=== PATIENT | female | born 1960 | race Caucasian/White ===

== ENCOUNTER 2025-06-25 15:26 | Outpatient (AMB) | payer OTHER, SELFPAY ==
--- NOTE | 2025-06-25 15:36 | MHC.PC.OV ---
Vital Signs 06/25/25 15:45 Height 5 ft 9.49 in Weight 330 lb 8 oz BMI 48.1 BP 134/76 Blood Pressure Location Lt brachial Position Sitting Pulse 94 Pulse Source Pulse Oximeter Temp 97.1 F Temp Source Temporal Artery Scan Pulse Oximetry (%) 95 Oxygen Delivery Method Room Air Intake Visit Reasons: establish care Intake Note: Patient is a new patient here to establish care for Glaucoma 2, Asthma, Bilaterial Edema of lower extremity, HLD, Arthritis, Low back pain, Migraines, Obesity. Transferring care from [facility]. Medical records have been requested and have received. Sales Operations Analyst Required: No Waste Oil Pumper: Not Required per policy Accompanied by: Self / Same As Patient Allergies environmental allergies Allergy (Intermediate, Verified 06/25/25 16:06) Unknown latex Allergy (Intermediate, Verified 06/25/25 16:06) Hives Penicillins Allergy (Intermediate, Verified 06/25/25 16:06) Unknown pork derived (porcine) Allergy (Intermediate, Verified 06/25/25 16:06) Hives opioid-like analgesics Allergy (Intermediate, Uncoded 06/25/25 16:06) Unknown Medication List - Last Reconciled 06/25/25 by BOBBY Kolb albuterol sulfate 90 mcg/actuation 2 puffs inhalation BID fluticasone propion-salmeterol 100-50 mcg/dose 1 ea inhalation BID fluticasone propionate 50 mcg/actuation (Flonase Allergy Relief) 2 sprays intranasal DAILY loperamide (Anti-Diarrheal (loperamide)) 4 mg PO DAILY PRN tobramycin-dexamethasone 0.3-0.1 % 1 drp ophthalmic (eye) TID Tobacco use date assessed: 06/25/25 Fall risk assessment: No Falls in past year Last assessed Fall Risk: 06/25/25 Dental Screening Dental Screen Date: 06/25/25 Did you have a dental visit in the last 12 months?: No Did you have a dental problem in the last 6 months where you did not have access to dental care?: No Was dental information given to patient?: No HPI establish care HPI Details Previous PCP: [facility] Last visit: 2020 Last PE: pre-covid Specialist: before covid windows migration technician in [place] (asthma), ophthamalopgy ( Dr. Hill) OBGYN: Past medical history:caracts, glaucoma, both eyes, she had laser surgery on both eyes to bring the pressure down before surgery, due the risk of asthmatics with glaucoma medications. Insurance company has a online PT than she has been doing this for month. Medications: Family HX: Problem: The patient needs clearance for cataract surgery coming up in June The patient is a 65-year-old female presenting for management of multiple chronic conditions including asthma, glaucoma, cataracts, arthritis, and migraines. The patient has a history of asthma, which has been well-controlled with the help of an windows migration technician in [place] prior to -. She has not seen the windows migration technician since the pandemic but acknowledges the need to resume visits to maintain control over her respiratory health. The patient was diagnosed with glaucoma and cataracts, with the latter condition identified just before the pandemic. She underwent recent laser surgery to manage intraocular pressure and is scheduled for cataract surgery with stent placement in July to further address the glaucoma. Arthritis has been a persistent issue for the patient, affecting multiple joints and causing significant discomfort, particularly in the hands. She has been engaging in online physical therapy to manage symptoms and improve function. The patient reports a long-standing history of migraines, which have been present since her teenage years. She has not required medication for this condition and notes a decrease in frequency over time. The patient experiences diarrhea approximately once a week, which she attributes to stress related to her job. She has not sought specific treatment for this symptom. Plans for cataract surgery in July, left eye on the 8th and the right eye on the th [facility] Medical History (Updated 06/26/25 @ 08:24 by BOBBY Kolb) Cataract Varicella Morbid obesity Migraines HLD (hyperlipidemia) Bilateral edema of lower extremity Asthma Surgical History History of YAG laser capsulotomy of lens Hx of tonsillectomy History of repair of right rotator cuff History of repair of left rotator cuff Family History Father Diabetes Myocardial infarction Migraines Mother Depression Alcoholism Asthma Other Substance use disorder Social History Housing: Apartment Alcohol intake: never Patient Tobacco Use Status: Never used Tobacco e-Cigarette/Vaping Use: Never Used Second Hand Smoke Exposure: No service: No Current occupational status: employed Current occupation: [employer] rep Cognitive needs: No Hearing needs: No Vision needs: Yes (Glasses) Questionnaire PHQ-9 Over the last 2 weeks, how often have you been bothered by any of the following problems? 1. Little interest or pleasure in doing things: not at all 2. Feeling down, depressed, or hopeless: not at all 3. Trouble falling or staying asleep, or sleeping too much: several days 4. Feeling tired or having little energy: not at all 5. Poor appetite or overeating: not at all 6. Feeling bad about yourself - or that you are a failure or have let yourself or your family down: not at all 7. Trouble concentrating on things, such as reading the newspaper or watching television: not at all 8. Moving or speaking so slowly that other people could have noticed. Or the opposite - being so fidgety or restless that you have been moving around a lot more than usual: not at all 9. Thoughts that you would be better off or of hurting yourself in some way: not at all Total score: 1 Depression Screening Interpretation: Negative Depression Screening Done: Yes 57444 - PHQ-9 Billing: Yes Source: Developed by Drs. Luis Alberto Vazquez, Debra Meier, Gregor Siegel and colleagues, with an educational georges from [employer] Thrive Questionnaire Date Thrive assessed: 06/25/25 I am a: Patient What is your living situation today?: I have a steady place to live Within the past 12 months, did the food you bought not last and you didn't have the money to get more?: Never true Within the past 12 months, did you worry whether your food would run out before you got money to buy more?: Never true Do you have trouble paying for medicines?: No Do you have trouble getting transportation to medical appointments?: No Do you have trouble paying your heating and electricity bill?: No Do you have trouble taking care of your child, family member or friend?: No Do you have trouble with day-to-day activities such as bathing, preparing meals, shopping, managing finances, etc.?: No Are you currently unemployed and looking for a job?: No Are you interested in more education?: No Please select the resources that you would like help with: None Currently or been in a relationship where the following occur: No concerns reported THRIVE Score: 0 AUDIT C Alcohol Use Questionnaire (AUDIT-C) 1. How often do you have a drink containing alcohol?: Monthly or less 2. How many drinks containing alcohol do you have on a typical day when you are drinking?: 1 or 2 3. How often do you have six or more drinks on one occasion?: Never Total Score: 1 RAQUEL-7 AMB Questionnaire RAQUEL-7 Date RAQUEL - 7 assessed: 06/25/25 Feeling nervous, anxious, or on edge: 1 = Several days Not being able to stop or control worryin = Not at all Worrying too much about different things: 1 = Several days Trouble relaxin = Several days Being so restless that it is hard to sit still: 0 = Not at all Becoming easily annoyed or irritable: 1 = Several days Feeling afraid as if something awful might happen: 0 = Not at all Total RAQUEL-7 score (0-4 normal; 5-9 mild; 10-14 moderate; 15-21 severe): 4 Source: Developed by Drs. Luis Alberto Vazquez, Debra Meier, Gregor Siegel and colleagues, with an educational georges from [employer] RAQUEL-7 Assessment Billing RAQUEL-7 Assessment Tool: RAQUEL-7 Assessment 68073 Review of Systems Const Denies headache(s) Eyes Denies loss of vision ENT Denies vertigo, Denies dizziness, Denies headache(s) and Denies sore throat Card Denies chest pain, Reports leg edema, Denies lightheadedness and Reports dyspnea (chronic asthma-now increased in symptom) Resp Denies cough, Denies hemoptysis, Reports dyspnea (chronic asthma-now increased in symptom) and Denies wheezing GI Denies abdominal pain, Denies melena, Denies constipation, Reports diarrhea (Once a week attributed to stress) and Denies vomiting Denies urinary frequency, Denies dysuria and Denies urinary urgency Musc Reports arthralgias (Multiple (hands, shoulders, knees)), Reports joint swelling (ankle), Denies numbness and Denies tingling Skin/Breast Denies dry skin and Reports skin swelling Neuro Denies Abnormal speech present, Denies behavioral changes, Denies vertigo, Denies dizziness, Denies headache(s), Denies loss of vision, Denies memory loss, Denies numbness and Denies tingling Psych Denies anxiety, Denies behavioral changes, Denies depression, Denies memory loss and Denies panic attacks Junior/Lymph Denies easy bleeding and Denies easy bruising Aller/Immun Denies wheezing Physical exam (Primary Care) Vital Signs: Last Vital Signs Temp 97.1 F 06/25/25 15:45 Pulse 94 06/25/25 15:45 BP 134/76 06/25/25 15:45 Pulse Ox 95 06/25/25 15:45 Oxygen Delivery Method Room Air 06/25/25 15:45 BMI result Body Mass Index 48.1 Tobacco/Smoking Status: Tobacco use Status Tobacco use date assessed 06/25/25 06/25/25 15:51 Patient Tobacco Use Status Never used Tobacco 06/25/25 15:51 e-Cigarette/Vaping Use Never Used 06/25/25 15:51 PHQ-9: PHQ-9 Score PHQ-9: Total score 1 06/26/25 07:47 Depression Screening Interpretation: Negative Thrive Assessment: Date of Thrive Assessment Date Thrive assessed 06/25/25 06/25/25 15:51 Currently or been in a relationship where the following occur: No concerns reported Const General: healthy appearing, no acute distress, alert and awake Nutritional Appearance: well nourished Orientation/consciousness: oriented to person, oriented to place and oriented to time HENMT Ears: TM's normal bilaterally General nose exam: Normal nasal mucous membranes and turbinates present Eyes Conjunctivae: conjunctivae normal Sclerae: sclerae normal Pupils: Equal, round and reactive pupils present Neck Neck: Yes no lymphadenopathy and Yes no JVD Thyroid: Thyroid normal Carotids: no bruits Resp Effort & Inspection: normal respiratory effort and not tachypneic Auscultation: clear to auscultation bilaterally, no crackles, no rales, no rhonchi, no wheezes and diminished lung sounds bilateral in the lower lung nieves Cardio Rate: regular rate Rhythm: regular rhythm Heart sounds: no murmurs and normal S1 and S2 GI Inspection: Yes Abdominal wall edema Palpation (GI): Soft to palpation, nontender, no hepatomegaly and no splenomegaly Auscultation: normal bowel sounds General: Yes no CVA tenderness Back/Spine/Pelvis Back: no CVA tenderness Thoracic/Lumbar Spine: No thoracic spinal tenderness and No lumbar spinal tenderness Skin General skin exam: dry skin Neuro General: oriented to person, oriented to place and oriented to time Cranial nerves: Yes Equal, round and reactive pupils present Speech: No Abnormal speech present Gait exam (Neuro): Normal gait present Motor exam (neuro): no tremor noted Extrem Right upper extremity: full ROM and Extremity exam: right hand Details: normal to inspection Left upper extremity: full ROM and hand Details: normal to inspection Right lower extremity: full ROM, edema, lower leg Details: pitting edema Details: 3+ and ankle Details: edema Details: 3+ Left lower extremity: full ROM, edema, lower leg Details: pitting edema Details: 3+ and ankle Details: pitting edema Details: 3+ Psych Mental Status: mental status grossly normal Speech and movement: Normal speech and movement present Affect: normal affect Attitude: cooperative Thought process: Normal thought process present Coding Level of Care Code New Pt Level 4 (84989) Diagnoses Asthma, unspecified asthma severity, unspecified whether complicated, unspecified whether persistent J45.909 Asthma complication type: unspecified Asthma persistence: unspecified Asthma severity: unspecified severity Bilateral edema of lower extremity R60.0 Hyperlipidemia, unspecified hyperlipidemia type E78.5 Hyperlipidemia type: unspecified Migraine without status migrainosus, not intractable, unspecified migraine type G43.909 Intractability: not intractable Migraine type: unspecified Status migrainosus presence: without status migrainosus Morbid obesity E66.01 Cataract of both eyes, unspecified cataract type H26.9 Cataract type: unspecified Laterality: bilateral Glaucoma of both eyes, unspecified glaucoma type H40.9 Glaucoma type: unspecified Laterality: bilateral Diarrhea, unspecified type R19.7 Diarrhea type: unspecified type Additional Codes RAQUEL-7 Assessment Billing - RAQUEL-7 Assessment Tool: RAQUEL-7 Assessment 28826 ([id number]) PHQ-9 - 07398 - PHQ-9 Billing: Yes ([id number]) Time Spent (min) 43 Assessment & Plan Assessment & Plan (1) Asthma: Code(s): J45.909 - Unspecified asthma, uncomplicated Category: Medical Qualifiers: Asthma complication type: unspecified Asthma persistence: unspecified Asthma severity: unspecified severity Qualified Code(s): J45.909 - Unspecified asthma, uncomplicated (2) Bilateral edema of lower extremity: Code(s): R60.0 - Localized edema Category: Medical (3) HLD (hyperlipidemia): Code(s): E78.5 - Hyperlipidemia, unspecified Category: Medical Qualifiers: Hyperlipidemia type: unspecified Qualified Code(s): E78.5 - Hyperlipidemia, unspecified (4) Migraines: Code(s): G43.909 - Migraine, unspecified, not intractable, without status migrainosus Category: Medical Qualifiers: Intractability: not intractable Migraine type: unspecified Status migrainosus presence: without status migrainosus Qualified Code(s): G43.909 - Migraine, unspecified, not intractable, without status migrainosus (5) Morbid obesity: Code(s): E66.01 - Morbid (severe) obesity due to excess calories Category: Medical (6) Cataract: Code(s): H26.9 - Unspecified cataract Category: Medical Qualifiers: Cataract type: unspecified Laterality: bilateral Qualified Code(s): H26.9 - Unspecified cataract (7) Glaucoma: Code(s): H40.9 - Unspecified glaucoma Category: Medical Qualifiers: Glaucoma type: unspecified Laterality: bilateral Qualified Code(s): H40.9 - Unspecified glaucoma (8) Diarrhea: Code(s): R19.7 - Diarrhea, unspecified Category: Medical Qualifiers: Diarrhea type: unspecified type Qualified Code(s): R19.7 - Diarrhea, unspecified Plan The patient will continue with her current asthma management plan. She is scheduled for cataract surgery in July, which will include stent placement to address her glaucoma. The patient is advised to continue her online physical therapy regimen to manage arthritis symptoms and improve joint function. No specific treatment is planned for her migraines as they have decreased in frequency and do not currently require medication. For her gastrointestinal symptoms, the patient is encouraged to manage stress levels, which may help reduce the frequency of diarrhea episodes. Patient was informed and verbally consented to the use of an ambient scribe for clinic note documentation during this visit. Orders: Orders Complete Blood Count Auto Diff 06/25/25 Z00.00 - Encounter for general adult medical examination without abnormal findings, Z01.818 - Encounter for other preprocedural examination Comprehensive [place]. Panel Fast 06/25/25 Z00.00 - Encounter for general adult medical examination without abnormal findings, Z01.818 - Encounter for other preprocedural examination Lipid Panel 06/25/25 Z.00 - Encounter for general adult medical examination without abnormal findings, Z01.818 - Encounter for other preprocedural examination Vitamin D 25-OH Total 06/25/25 Z00.00 - Encounter for general adult medical examination without abnormal findings, Z01.818 - Encounter for other preprocedural examination Prothrombin Time INR 06/25/25 Z00.00 - Encounter for general adult medical examination without abnormal findings, Z01.818 - Encounter for other preprocedural examination B Type Natriuretic Peptide 06/26/25 R60.0 - Localized edema UA CC w/rflx Micro + Cult 06/25/25 Z00.00 - Encounter for general adult medical examination without abnormal findings, Z01.818 - Encounter for other preprocedural examination TSH reflex Free T4 06/25/25 Z00.00 - Encounter for general adult medical examination without abnormal findings, Z01.818 - Encounter for other preprocedural examination ECG 12 lead EKG 06/25/25 Z00.00 - Encounter for general adult medical examination without abnormal findings, Z01.818 - Encounter for other preprocedural examination
[2025-06-25 15:45] VITALS: BP 134/76; PULSE 94; TEMP 36.2; O2SAT 95; BMI 48.1
== END 2025-06-25 16:32 | disposition home or self-care (01) ==
LOC: HO.HMCH 15:30
DX: J45.909 Unspecified asthma, uncomplicated (principal); R60.0 Localized edema; E66.01 Morbid (severe) obesity due to excess calories; Z68.42 Body mass index [BMI] 45.0-49.9, adult; E78.5 Hyperlipidemia, unspecified; G43.909 Migraine, unspecified, not intractable, without status migrainosus; H26.9 Unspecified cataract; H40.9 Unspecified glaucoma; R19.7 Diarrhea, unspecified

== ENCOUNTER → 2025-06-25 15:26 | Outpatient (BNVA) | payer OTHER, SELFPAY | DX: R60.0 Localized edema (principal); H40.9 Unspecified glaucoma; J45.909 Unspecified asthma, uncomplicated; E78.5 Hyperlipidemia, unspecified; M54.50 Low back pain, unspecified; G43.909 Migraine, unspecified, not intractable, without status migrainosus; E66.01 Morbid (severe) obesity due to excess calories; H26.9 Unspecified cataract; R19.7 Diarrhea, unspecified; Z68.42 Body mass index [BMI] 45.0-49.9, adult | CPT/HCPCS: 96127 ==

== ENCOUNTER 2025-07-19 09:27 | Outpatient (REF) | payer OTHER, SELFPAY ==
[2025-07-19 13:11] LABS: MANUAL DIFF FLAG NO
[2025-07-19 13:17] LABS: B Type Natriuretic Peptide 22 pg/mL (<100)
[2025-07-19 13:19] LABS: INTERNATIONAL NORM RATIO 1.0 (0.9-1.1); Prothrombin Time 10.9 SEC (10.9-12.4)
[2025-07-19 13:20] LABS: Hematocrit 43.7 % (37.0-47.0); Hemoglobin 14.8 g/dl (12.0-16.0); Imm Gran Abs Auto 0.03 X10*3/uL (0.00-0.03); Imm Gran Pct Auto 0.5 % (0.0-0.4); Lymphocytes Absolute Auto 1.6 X10*3/uL (1.2-4.9); Mean Corpuscular HGB Conc 33.9 g/dl (31.0-35.0); Mean Corpuscular Hemoglobin 30.3 pg (27.0-33.0); Mean Corpuscular Volume 89.5 fL (80.0-98.0); NRBC Abs Auto 0.000 X10*3/uL (0.0-0.012); NRBC Pct Auto 0.0 /100WBC (0.0-0.2); Platelet Count 265 X10*3/uL (160-400); Red Blood Count 4.88 X10*6/uL (4.20-5.50); White Blood Count 6.6 X10*3/uL (4.8-10.8)
[2025-07-19 13:50] LABS: Alanine Aminotransferase 34 U/L (0-31); Albumin Level 4.4 g/dL (3.5-5.0); Alkaline Phosphatase 114 U/L (39-117); Anion Gap 14 (12-20); Aspartate Amino Transferase 29 U/L (5-31); Blood Urea Nitrogen 13 mg/dL (9-16); Calcium 9.3 mg/dL (8.4-10.2); Carbon Dioxide 23 mmol/L (22-29); Chloride 110 mmol/L (96-108); Cholesterol 207 mg/dL (<200); Estimated Glomerular Filt Rate > 60; HDL Cholesterol 35 mg/dL (>40); Potassium 4.7 mmol/L (3.3-5.1); Sodium 142 mmol/L (135-145); Total Protein 7.0 g/dL (6.5-8.0); Triglycerides 189 mg/dL (<150)
[2025-07-19 16:53] LABS: Appearance Urine Turbid; Glucose Urine UA Negative (Negative); PH 5.5 (5.0-9.0); Specific Gravity - Urine 1.025 (1.005-1.025); UMIC TRIGGER UACC YES
[2025-07-19 16:59] LABS: UACC Culture Trigger YES
== END 2025-07-19 09:28 | disposition home or self-care (01) ==
LOC: HO.HMGCLDS 09:27
DX: Z00.00 Encounter for general adult medical examination without abnormal findings (principal); R60.0 Localized edema; Z13.6 Encounter for screening for cardiovascular disorders; Z13.21 Encounter for screening for nutritional disorder
CPT/HCPCS: 36415; 80053; 80061; 81001; 82306; 83880; 84443; 85025; 85610; 87086

== ENCOUNTER 2025-08-01 13:53 | Outpatient (AMB) | payer OTHER, SELFPAY ==
[2025-08-01 14:14] VITALS: BP 160/98; PULSE 81; RESP 18; TEMP 36.3; O2SAT 94; BMI 48.6
--- NOTE | 2025-08-01 14:14 | MHC.PC.OV ---
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 Accompanied by: Self / Same As Patient Allergies environmental allergies Allergy (Intermediate, Verified 08/01/25 14:50) Unknown latex Allergy (Intermediate, Verified 08/01/25 14:50) Hives Penicillins Allergy (Intermediate, Verified 08/01/25 14:50) Unknown pork derived (porcine) Allergy (Intermediate, Verified 08/01/25 14:50) Hives opioid-like analgesics Allergy (Intermediate, Uncoded 08/01/25 14:50) Unknown Medication List - Last Reconciled 08/01/25 by BOBBY Kolb albuterol sulfate 90 mcg/actuation 2 puffs inhalation BID fluticasone propion-salmeterol 100-50 mcg/dose 1 ea inhalation BID fluticasone propionate 50 mcg/actuation (Flonase Allergy Relief) 2 sprays intranasal DAILY loperamide (Anti-Diarrheal (loperamide)) 4 mg PO DAILY PRN Tobacco use date assessed: 08/01/25 Fall risk assessment: No Falls in past year Last assessed Fall Risk: 08/01/25 Dental Screening Dental Screen Date: 08/01/25 Did you have a dental visit in the last 12 months?: No Did you have a dental problem in the last 6 months where you did not have access to dental care?: No Was dental information given to patient?: No HPI Dr Hill 08/06 & 08/13 HPI Details The patient is a 65-year-old female presenting for preop clearance for cataract surgery. Patient is fairly knew to the facility, establish care on 06/25/2025. The patient was diagnosed with glaucoma and cataracts, with the latter condition identified just before the COVID-19 pandemic. She underwent recent laser surgery to manage intraocular pressure and is scheduled for cataract surgery with stent placement in July to further address the glaucoma. Surgeon/location: Dr. [facility] [place], [place] Date: 08/07/2025 Left eye and 08/13/2025 right eye. Anesthesia: Local The patient has previously undergone shoulder surgeries with general anesthesia and tolerated it well, although opioids post-surgery caused significant nausea. For the upcoming cataract surgery, the patient will not require opioids, which is reassuring to her. Patient denies postoperative hypothermia or clotting disorder and she is not on any blood thinners or DMARDs. Significant past medical history cataract, glaucoma, migraines, asthma, HLD Denies chest pain, shortness of breath, heart palpitation or dizziness Denies abdominal pain or change in bowel habits [facility] Medical History Cataract Varicella Morbid obesity Migraines HLD (hyperlipidemia) Bilateral edema of lower extremity Asthma Surgical History History of YAG laser capsulotomy of lens Hx of tonsillectomy History of repair of right rotator cuff History of repair of left rotator cuff Family History Father Diabetes Myocardial infarction Migraines Mother Depression Alcoholism Asthma Other Substance use disorder Social History Housing: Apartment Alcohol intake: never Patient Tobacco Use Status: Never used Tobacco e-Cigarette/Vaping Use: Never Used Second Hand Smoke Exposure: No service: No Current occupational status: employed 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 1. Little interest or pleasure in doing things: not at all 2. Feeling down, depressed, or hopeless: not at all 3. Trouble falling or staying asleep, or sleeping too much: several days 4. Feeling tired or having little energy: not at all 5. Poor appetite or overeating: not at all 6. Feeling bad about yourself - or that you are a failure or have let yourself or your family down: not at all 7. Trouble concentrating on things, such as reading the newspaper or watching television: not at all 8. Moving or speaking so slowly that other people could have noticed. Or the opposite - being so fidgety or restless that you have been moving around a lot more than usual: not at all 9. Thoughts that you would be better off or of hurting yourself in some way: not at all Total score: 1 Depression Screening Interpretation: Negative Depression Screening Done: Yes Source: Developed by Drs. Luis Alberto Vazquez, Debra Meier, Gregor Siegel and colleagues, with an educational georges from [employer] Thrive Questionnaire Date Thrive assessed: 08/01/25 I am a: Patient What is your living situation today?: I have a steady place to live Within the past 12 months, did the food you bought not last and you didn't have the money to get more?: Never true Within the past 12 months, did you worry whether your food would run out before you got money to buy more?: Never true Do you have trouble paying for medicines?: No Do you have trouble getting transportation to medical appointments?: No Do you have trouble paying your heating and electricity bill?: No Do you have trouble taking care of your child, family member or friend?: No Do you have trouble with day-to-day activities such as bathing, preparing meals, shopping, managing finances, etc.?: No Are you currently unemployed and looking for a job?: No Are you interested in more education?: No Please select the resources that you would like help with: None Currently or been in a relationship where the following occur: No concerns reported THRIVE Score: 0 AUDIT C Alcohol Use Questionnaire (AUDIT-C) 1. How often do you have a drink containing alcohol?: Monthly or less 2. How many drinks containing alcohol do you have on a typical day when you are drinking?: 1 or 2 3. How often do you have six or more drinks on one occasion?: Never Total Score: 1 RAQUEL-7 AMB Questionnaire RAQUEL-7 Date RAQUEL - 7 assessed: 08/01/25 Feeling nervous, anxious, or on edge: 1 = Several days Not being able to stop or control worryin = Not at all Worrying too much about different things: 1 = Several days Trouble relaxin = Several days Being so restless that it is hard to sit still: 0 = Not at all Becoming easily annoyed or irritable: 1 = Several days Feeling afraid as if something awful might happen: 0 = Not at all Total RAQUEL-7 score (0-4 normal; 5-9 mild; 10-14 moderate; 15-21 severe): 4 Source: Developed by Drs. Luis Alberto Vazquez, Debra Meier, Gregor Siegel and colleagues, with an educational georges from [employer] Review of Systems Const Reports headache(s) (on and off) Eyes Denies loss of vision ENT Denies vertigo, Denies dizziness, Reports headache(s) (on and off) and Denies sore throat Card Denies chest pain, Reports leg edema, Denies lightheadedness and Reports dyspnea on exertion (chronic asthma-improved with treatment) Resp Denies cough, Denies hemoptysis, Reports dyspnea on exertion (chronic asthma-improved with treatment) and Denies wheezing GI Denies abdominal pain, Denies melena, Denies constipation, Reports diarrhea (Once a week- stress related) and Denies vomiting Denies urinary frequency, Denies dysuria and Denies urinary urgency Musc Denies arthralgias, Denies joint swelling, Denies numbness and Denies tingling Neuro Denies Abnormal speech present, Denies behavioral changes, Denies vertigo, Denies dizziness, Reports headache(s) (on and off), Denies loss of vision, Denies memory loss, Denies numbness and Denies tingling Psych Denies anxiety, Denies behavioral changes, Denies depression, Denies memory loss and Denies panic attacks Junior/Lymph Denies easy bleeding and Denies easy bruising Aller/Immun Denies wheezing Physical exam (Primary Care) Vital Signs: Last Vital Signs Temp 97.3 F 08/01/25 14:14 Pulse 81 08/01/25 14:14 Resp 18 08/01/25 14:14 BP 160/98 H 08/01/25 14:14 Pulse Ox 94 08/01/25 14:14 Oxygen Delivery Method Room Air 08/01/25 14:14 BMI result Body Mass Index 48.6 Tobacco/Smoking Status: Tobacco use Status Tobacco use date assessed 08/01/25 08/01/25 14:17 Patient Tobacco Use Status Never used Tobacco 08/01/25 14:17 e-Cigarette/Vaping Use Never Used 08/01/25 14:17 PHQ-9: PHQ-9 Score PHQ-9: Total score 1 08/01/25 14:17 Depression Screening Interpretation: Negative Thrive Assessment: Date of Thrive Assessment Date Thrive assessed 08/01/25 08/01/25 14:17 Currently or been in a relationship where the following occur: No concerns reported Const General: healthy appearing, no acute distress, alert and awake Nutritional Appearance: well nourished Orientation/consciousness: oriented to person, oriented to place and oriented to time HENMT Ears: TM's normal bilaterally General nose exam: Normal nasal mucous membranes and turbinates present Eyes Conjunctivae: conjunctivae normal Sclerae: sclerae normal Pupils: Equal, round and reactive pupils present Neck Neck: Yes no lymphadenopathy and Yes no JVD Thyroid: Thyroid normal Carotids: no bruits Resp Effort & Inspection: normal respiratory effort and not tachypneic Auscultation: no crackles, no rales, no rhonchi and no wheezes Cardio Rate: regular rate Rhythm: regular rhythm Heart sounds: no murmurs and normal S1 and S2 GI Palpation (GI): Soft to palpation, nontender, no hepatomegaly and no splenomegaly Auscultation: normal bowel sounds General: Yes no CVA tenderness Back/Spine/Pelvis Back: no CVA tenderness Skin General skin exam: no rashes or lesions noted and dry skin Neuro General: oriented to person, oriented to place and oriented to time Cranial nerves: Yes Equal, round and reactive pupils present Speech: No Abnormal speech present Gait exam (Neuro): Normal gait present Motor exam (neuro): no tremor noted Extrem Right upper extremity: full ROM Left upper extremity: full ROM Right lower extremity: full ROM and edema Details: 3+ Left lower extremity: full ROM and edema Details: 3+ Psych Mental Status: mental status grossly normal Speech and movement: Normal speech and movement present Affect: normal affect Attitude: cooperative Thought process: Normal thought process present Results Reviewed Results Reviewed: Laboratory Tests 07/19/25 07/19/25 09:45 13:40 WBC 6.6 RBC 4.88 Hgb 14.8 Hct 43.7 MCV 89.5 MCH 30.3 MCHC 33.9 RDW 13.2 Plt Count 265 PT 10.9 INR 1.0 Sodium 142 Potassium 4.7 Chloride 110 H Carbon Dioxide 23 Anion Gap 14 BUN 13 Creatinine 0.90 Estimated GFR > 60 Fasting Glucose 97 Calcium 9.3 Total Bilirubin 0.5 AST 29 ALT 34 H Alkaline Phosphatase 114 B-Natriuretic Peptide 22 Total Protein 7.0 Albumin 4.4 Triglycerides 189 H Cholesterol 207 H LDL Cholesterol, Calc 135 H HDL Cholesterol 35 L 25-OH Vitamin D Total 43.7 TSH 1.08 Urine Color Yellow Urine Appearance Turbid Urine pH 5.5 Ur Specific [place] 1.025 Urine Protein Negative Urine Glucose (UA) Negative Urine Ketones Negative Urine Blood Negative Urine Nitrite Negative Ur Leukocyte Esterase Small (1+) H Urine RBC 0-2 Urine WBC 11-20 H Ur Squamous Epith Cells 11-20 Urine Bacteria 1+ Hyaline Casts 3-5 Coding Level of Care Code Est Pt Level 3 (55280) Diagnoses Preoperative clearance Z01.818 Cataract of both eyes, unspecified cataract type H26.9 Cataract type: unspecified Laterality: bilateral Glaucoma of both eyes, unspecified glaucoma type H40.9 Glaucoma type: unspecified Laterality: bilateral Migraine without status migrainosus, not intractable, unspecified migraine type G43.909 Migraine type: unspecified Status migrainosus presence: without status migrainosus Intractability: not intractable Asthma, unspecified asthma severity, unspecified whether complicated, unspecified whether persistent J45.909 Asthma severity: unspecified severity Asthma persistence: unspecified Asthma complication type: unspecified Dyspnea on exertion R06.09 Dyspnea type: dyspnea on exertion Time Spent (min) 36 Assessment & Plan Assessment & Plan (1) Preoperative clearance: Code(s): Z01.818 - Encounter for other preprocedural examination Category: Medical Plan: Regarding preop clearance, the patient is at acceptable risk for proposed surgery. Reviewed with the patient that no surgery is completely free of risk and that this examination is to assist the surgeon in reviewing informed consent. (2) Cataract: Code(s): H26.9 - Unspecified cataract Category: Medical Qualifiers: Cataract type: unspecified Laterality: bilateral Qualified Code(s): H26.9 - Unspecified cataract Plan: The patient is scheduled for cataract surgery on August 06, starting with the left eye followed by the right eye. The surgery will also address glaucoma, which was diagnosed during the cataract evaluation. (3) Glaucoma: Code(s): H40.9 - Unspecified glaucoma Category: Medical Qualifiers: Glaucoma type: unspecified Laterality: bilateral Qualified Code(s): H40.9 - Unspecified glaucoma Plan: The patient underwent laser treatment in May for glaucoma, which successfully reduced intraocular pressure. (4) Migraines: Code(s): G43.909 - Migraine, unspecified, not intractable, without status migrainosus Category: Medical Qualifiers: Migraine type: unspecified Status migrainosus presence: without status migrainosus Intractability: not intractable Qualified Code(s): G43.909 - Migraine, unspecified, not intractable, without status migrainosus Plan: The patient has a history of migraines but reports not having had an attack for years. (5) Asthma: Code(s): J45.909 - Unspecified asthma, uncomplicated Category: Medical Qualifiers: Asthma severity: unspecified severity Asthma persistence: unspecified Asthma complication type: unspecified Qualified Code(s): J45.909 - Unspecified asthma, uncomplicated Plan: The patient reports having asthma, which is not severe. This is stable on current treatment. Continue albuterol sulfate 90 mcg/actuation 2 puffs inhalation b.i.d., fluticasone propion-salmeterol 100-50 mcg/dose 1 ea inhalation b.i.d. (6) Dyspnea: Code(s): R06.00 - Dyspnea, unspecified Category: Medical Qualifiers: Dyspnea type: dyspnea on exertion Qualified Code(s): R06.09 - Other forms of dyspnea Plan: Reports dyspnea on prior visit. CBC within normal limits, B-natriuretic peptide 22. Patient lungs are clear to auscultation. Pitting edema seems to be dependent in nature. Symptoms most likely related to chronic asthma along with deconditioning.
[2025-08-01 15:16] VITALS: BP 142/84
== END 2025-08-01 15:17 | disposition home or self-care (01) ==
LOC: HO.HMCH 13:54
DX: Z01.818 Encounter for other preprocedural examination (principal); H26.9 Unspecified cataract; H40.9 Unspecified glaucoma; G43.909 Migraine, unspecified, not intractable, without status migrainosus; J45.909 Unspecified asthma, uncomplicated; R06.09 Other forms of dyspnea

== ENCOUNTER 2025-08-29 09:44 | Outpatient (AMB) | payer OTHER, SELFPAY ==
[2025-08-29 09:56] VITALS: BP 138/84; PULSE 90; RESP 18; TEMP 36.2; O2SAT 96; BMI 48.0
--- NOTE | 2025-08-29 09:56 | MHC.PC.OV ---
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 Accompanied by: Self / Same As Patient Allergies environmental allergies Allergy (Intermediate, Verified 08/29/25 10:08) Unknown latex Allergy (Intermediate, Verified 08/29/25 09:57) Hives Penicillins Allergy (Intermediate, Verified 08/29/25 09:57) Unknown pork derived (porcine) Allergy (Intermediate, Verified 08/29/25 09:57) Hives opioid-like analgesics Allergy (Intermediate, Uncoded 08/01/25 14:50) Unknown Medication List - Last Reconciled 08/29/25 by BOBBY Kolb albuterol sulfate 90 mcg/actuation 2 puffs inhalation BID fluticasone propion-salmeterol 100-50 mcg/dose 1 ea inhalation BID fluticasone propionate 50 mcg/actuation (Flonase Allergy Relief) 2 sprays intranasal DAILY loperamide (Anti-Diarrheal (loperamide)) 4 mg PO DAILY PRN Tobacco use date assessed: 08/29/25 Fall risk assessment: No Falls in past year Last assessed Fall Risk: 08/29/25 Dental Screening Dental Screen Date: 08/29/25 Did you have a dental visit in the last 12 months?: No Was dental information given to patient?: Patient has dentist HPI annual exam HPI Details Dentist: recommend Eye: up to date Snellen: Right: Left: Corrected vision:yes, will be getting computer lenses, recently had stenting for glaucoma STI screening: Colonoscopy: Reports having a colonoscopy when she was at college due to losing weight after returning from [place] OBGYN: Needs a referral-will put one in mammogram: order placed PHQ-9: Flu: up to date COVID: x5 Tdap: given in office today Diet: regular diet, tends to avoid meat Exercise: Reports that she is trying to start exercises The patient is a 65-year-old female presenting for a wellness visit and management of chronic conditions including hypertension, glaucoma, and hyperlipidemia. Hypertension has been a concern, with recent measurements indicating elevated blood pressure levels. The patient reports that her blood pressure was high during a recent check, but she is unsure of the equipment used. A recheck showed a reading of 138/84 mmHg, which is still elevated but better than previous readings. The patient has a history of glaucoma, for which she underwent a procedure involving the placement of stents to manage intraocular pressure. She is required to have glaucoma checks every three months to monitor the condition. The patient has astigmatism and reports that one eye has a vision of 20/25. She is considering corrective lenses for driving at night due to this condition. Hyperlipidemia is noted with triglycerides at 189 mg/dL and LDL cholesterol at 135 mg/dL, both of which are elevated. The patient has been advised to reduce processed food intake to manage cholesterol levels. The patient experiences joint pain, particularly in the thumb joint, which affects her sleep. She has been using Tylenol and Aleve for pain management, with some relief noted. Diarrhea has been a recent issue, occurring every other day, and is suspected to be stress-related. The patient is considering dietary changes and a food journal to identify potential triggers. The patient has a history of asthma, which is exacerbated during ragweed season. She uses albuterol as needed and is considering a steroid inhaler for better management. Preventative care measures include a colonoscopy, which was last performed over ten years ago, and a mammogram, which is overdue. The patient is also diligent about receiving flu and COVID-19 vaccinations due to her asthma. [facility] Medical History Cataract Varicella Morbid obesity Migraines HLD (hyperlipidemia) Bilateral edema of lower extremity Asthma Surgical History History of YAG laser capsulotomy of lens Hx of tonsillectomy History of repair of right rotator cuff History of repair of left rotator cuff Family History Father Diabetes Myocardial infarction Migraines Mother Depression Alcoholism Asthma Other Substance use disorder Social History Housing: Apartment Alcohol intake: never Patient Tobacco Use Status: Never used Tobacco e-Cigarette/Vaping Use: Never Used Second Hand Smoke Exposure: No service: No Current occupational status: employed Current occupation: Costmer service rep Cognitive needs: No Hearing needs: No Vision needs: Yes (Glasses) Questionnaire Thrive Questionnaire Date Thrive assessed: 06/25/25 I am a: Patient What is your living situation today?: I have a steady place to live Within the past 12 months, did the food you bought not last and you didn't have the money to get more?: Never true Within the past 12 months, did you worry whether your food would run out before you got money to buy more?: Never true Do you have trouble paying for medicines?: No Do you have trouble getting transportation to medical appointments?: No Do you have trouble paying your heating and electricity bill?: No Do you have trouble taking care of your child, family member or friend?: No Do you have trouble with day-to-day activities such as bathing, preparing meals, shopping, managing finances, etc.?: No Are you currently unemployed and looking for a job?: No Are you interested in more education?: No Please select the resources that you would like help with: None Currently or been in a relationship where the following occur: No concerns reported THRIVE Score: 0 ARQUEL-7 AMB Questionnaire RAQUEL-7 Date RAQUEL - 7 assessed: 08/01/25 Source: Developed by Drs. Luis Alberto Vazquez, Debra Meier, Gregor Siegel and colleagues, with an educational georges from [employer]. Review of Systems Const Denies headache(s) Eyes Denies loss of vision ENT Denies vertigo, Denies dizziness, Denies headache(s) and Denies sore throat Card Denies chest pain, Denies leg edema, Denies lightheadedness and Reports dyspnea Resp Denies cough, Denies hemoptysis, Reports dyspnea and Denies wheezing GI Denies abdominal pain, Denies melena, Denies constipation, Denies diarrhea and Denies vomiting Denies urinary frequency, Denies dysuria and Denies urinary urgency Musc Reports arthralgias (metacarpophalangeal joint of the left thumb, anthony knee), Denies joint swelling, Denies numbness and Denies tingling Skin/Breast Denies lesions and Denies rash Neuro Denies Abnormal speech present, Denies behavioral changes, Denies vertigo, Denies dizziness, Denies headache(s), Denies loss of vision, Denies memory loss, Denies numbness and Denies tingling Psych Denies anxiety, Denies behavioral changes, Denies depression, Denies memory loss and Denies panic attacks Junior/Lymph Denies easy bleeding and Denies easy bruising Aller/Immun Denies wheezing Physical exam (Primary Care) Vital Signs: Last Vital Signs Temp 97.1 F 08/29/25 09:56 Pulse 90 08/29/25 09:56 Resp 18 08/29/25 09:56 BP 138/84 08/29/25 09:56 Pulse Ox 96 08/29/25 09:56 Oxygen Delivery Method Room Air 08/29/25 09:56 BMI result Body Mass Index 48.0 Tobacco/Smoking Status: Tobacco use Status Tobacco use date assessed 08/29/25 08/29/25 10:03 Patient Tobacco Use Status Never used Tobacco 08/29/25 10:03 e-Cigarette/Vaping Use Never Used 08/29/25 10:03 Thrive Assessment: Date of Thrive Assessment Date Thrive assessed 06/25/25 08/29/25 10:03 Currently or been in a relationship where the following occur: No concerns reported Const General: healthy appearing, no acute distress, alert and awake Nutritional Appearance: well nourished Orientation/consciousness: oriented to person, oriented to place and oriented to time HENMT Ears: TM's normal bilaterally General nose exam: Normal nasal mucous membranes and turbinates present Eyes Conjunctivae: conjunctivae normal Sclerae: sclerae normal Pupils: Equal, round and reactive pupils present Neck Neck: Yes no lymphadenopathy and Yes no JVD Thyroid: Thyroid normal Carotids: no bruits Resp Effort & Inspection: normal respiratory effort and not tachypneic Auscultation: no crackles, no rales, no rhonchi and no wheezes Cardio Rate: regular rate Rhythm: regular rhythm Heart sounds: no murmurs and normal S1 and S2 GI Palpation (GI): Soft to palpation, nontender, no hepatomegaly and no splenomegaly Auscultation: normal bowel sounds Skin General skin exam: no rashes or lesions noted and dry skin Neuro General: oriented to person, oriented to place and oriented to time Cranial nerves: Yes CN's II-XII intact bilaterally and Yes Equal, round and reactive pupils present Speech: No Abnormal speech present Gait exam (Neuro): Normal gait present Motor exam (neuro): no tremor noted Deep tendon reflexes (DTR's): Right triceps reflex intensity grade: 2+, Left triceps reflex intensity grade: 2+, Rt Biceps (C5, C6): 2+, Left biceps reflex intensity grade: 2+, Right brachioradialis reflex intensity grade: 2+, Left brachioradialis reflex intensity grade: 2+, Right patellar reflex intensity grade: 2+ and Left patellar reflex intensity grade: 2+ Extrem Right upper extremity: full ROM Left upper extremity: full ROM and hand (thumb MCP joint w/o tenderness or edema) Right lower extremity: full ROM and edema Details: non-pitting and 1+ Left lower extremity: full ROM and edema Details: non-pitting and 1+ Psych Mental Status: mental status grossly normal Speech and movement: Normal speech and movement present Affect: normal affect Attitude: cooperative Thought process: Normal thought process present Immunizations Tenivac (PF) 5 Lf unit-2 Lf unit/0.5 mL intramuscular syringe Performing Provider: BOBBY Kolb [place] [facility] [place] [place] [facility] Administered by: Rosina García RN on 08/29/25 10:34 Dose Route Admin Location Dispensed Lot Number Expiration Date [facility] Environmental Services Floor Tech 0.5 mL IM Right Deltoid 0.5 mL [id number] 03/28/27 56504-730-17 [employer] Total Dispensed Waste 0.5 mL 0 % VIS Given Date VIS Provided VIS Publication Date 08/29/25 Single Vaccine 21 Eligibility Eligibility Date Funding Source Not [facility] Eligible 08/29/25 Private Results Reviewed Results Reviewed: Laboratory Tests 07/19/25 07/19/25 09:45 13:40 WBC 6.6 RBC 4.88 Hgb 14.8 Hct 43.7 MCV 89.5 MCH 30.3 MCHC 33.9 RDW 13.2 Plt Count 265 MPV 9.7 Sodium 142 Potassium 4.7 Chloride 110 H Carbon Dioxide 23 Anion Gap 14 BUN 13 Creatinine 0.90 Estimated GFR > 60 Fasting Glucose 97 Calcium 9.3 Total Bilirubin 0.5 AST 29 ALT 34 H Alkaline Phosphatase 114 B-Natriuretic Peptide 22 Total Protein 7.0 Albumin 4.4 Triglycerides 189 H Cholesterol 207 H LDL Cholesterol, Calc 135 H HDL Cholesterol 35 L 25-OH Vitamin D Total 43.7 TSH 1.08 Urine Color Yellow Urine Appearance Turbid Urine pH 5.5 Ur Specific [place] 1.025 Urine Protein Negative Urine Glucose (UA) Negative Urine Ketones Negative Urine Blood Negative Urine Nitrite Negative Ur Leukocyte Esterase Small (1+) H Urine WBC 11-20 H Ur Squamous Epith Cells 11-20 Urine Bacteria 1+ Hyaline Casts 3-5 Coding Level of Care Code Est Pt Prev Care 40-64y([id number]) Diagnoses Annual physical exam Z00.00 Asthma, unspecified asthma severity, unspecified whether complicated, unspecified whether persistent J45.909 Asthma complication type: unspecified Asthma persistence: unspecified Asthma severity: unspecified severity Bilateral edema of lower extremity R60.0 Hyperlipidemia, unspecified hyperlipidemia type E78.5 Hyperlipidemia type: unspecified Migraine without status migrainosus, not intractable, unspecified migraine type G43.909 Intractability: not intractable Migraine type: unspecified Status migrainosus presence: without status migrainosus Morbid obesity E66.01 Cataract of both eyes, unspecified cataract type H26.9 Cataract type: unspecified Laterality: bilateral Glaucoma of both eyes, unspecified glaucoma type H40.9 Glaucoma type: unspecified Laterality: bilateral Diarrhea, unspecified type R19.7 Diarrhea type: unspecified type Dyspnea on exertion R06.09 Dyspnea type: dyspnea on exertion Elevated ALT measurement R74.01 Pain of left thumb M79.645 Colon cancer screening Z12.11 Encounter for screening mammogram for malignant neoplasm of breast Z12.31 Breast cancer screening modality: mammogram Time Spent (min) 38 Assessment & Plan Assessment & Plan (1) Annual physical exam: Code(s): Z00.00 - Encounter for general adult medical examination without abnormal findings Category: Medical Plan: Preventative guidelines and recent labs reviewed with the patient. The patient is due for colonoscopy a referral was placed to GI. Mammogram ordered and the patient was referred to OBGYN for routine gynecological examination. TDap given in office today. (2) Asthma: Code(s): J45.909 - Unspecified asthma, uncomplicated Category: Medical Qualifiers: Asthma complication type: unspecified Asthma persistence: unspecified Asthma severity: unspecified severity Qualified Code(s): J45.909 - Unspecified asthma, uncomplicated Plan: The patient reports having asthma, which is not severe. This is stable on current treatment. Continue albuterol sulfate 90 mcg/actuation 2 puffs inhalation b.i.d., fluticasone propion-salmeterol 100-50 mcg/dose 1 ea inhalation b.i.d. Inhalers were refilled. The patient reports that she has be having more sob lately due to the increase of ragweeds. (3) Bilateral edema of lower extremity: Code(s): R60.0 - Localized edema Category: Medical Plan: Swelling is mild and is non-pitting. Seems to be dependent related. Encouraged low salt diet. (4) HLD (hyperlipidemia): Code(s): E78.5 - Hyperlipidemia, unspecified Category: Medical Qualifiers: Hyperlipidemia type: unspecified Qualified Code(s): E78.5 - Hyperlipidemia, unspecified Plan: The patient will be advised to reduce processed/high cholesterol food intake and consider alternative cholesterol-lowering medications due to previous intolerance to statins. Ezetimibe 10 mg daily ordered. The patient was given a printout of foods that are high in cholesterol for her to avoid or limit. will repeat lipid panel in 3 months (5) Migraines: Code(s): G43.909 - Migraine, unspecified, not intractable, without status migrainosus Category: Medical Qualifiers: Intractability: not intractable Migraine type: unspecified Status migrainosus presence: without status migrainosus Qualified Code(s): G43.909 - Migraine, unspecified, not intractable, without status migrainosus Plan: The patient has a history of migraines but reports not having had an attack for years. (6) Morbid obesity: Code(s): E66.01 - Morbid (severe) obesity due to excess calories Category: Medical Plan: Encouraged low cholesterol and activity as tolerated to aid in losing weight (7) Cataract: Code(s): H26.9 - Unspecified cataract Category: Medical Qualifiers: Cataract type: unspecified Laterality: bilateral Qualified Code(s): H26.9 - Unspecified cataract Plan: The patient had cataract surgery on August 06, starting with the left eye followed by the right eye. The surgery addressed her glaucoma issues as well. Reports that she had a stent placement and she is seeing much better now. (8) Glaucoma: Code(s): H40.9 - Unspecified glaucoma Category: Medical Qualifiers: Glaucoma type: unspecified Laterality: bilateral Qualified Code(s): H40.9 - Unspecified glaucoma Plan: The patient underwent laser treatment in May for glaucoma, which successfully reduced intraocular pressure. This was follow up by stenting on August 06. (9) Diarrhea: Code(s): R19.7 - Diarrhea, unspecified Category: Medical Qualifiers: Diarrhea type: unspecified type Qualified Code(s): R19.7 - Diarrhea, unspecified Plan: The patient reports that this occurs every other day. Reports that she does not think that this acute and is stress related. She declines stool sample to check for OVA, parasites, and leukocytes. Discussed [place] diet in detailed (10) Dyspnea: Code(s): R06.00 - Dyspnea, unspecified Category: Medical Qualifiers: Dyspnea type: dyspnea on exertion Qualified Code(s): R06.09 - Other forms of dyspnea Plan: Reports dyspnea on prior visit. CBC within normal limits, B-natriuretic peptide 22. Patient lungs are clear to auscultation. Non-Pitting edema seems to be dependent in nature. Symptoms most likely related to chronic asthma along with deconditioning. (11) Elevated ALT measurement: Code(s): R74.01 - Elevation of levels of liver transaminase levels Category: Medical Plan: ALT slightly elevated, limit alcohol/drugs containing tylenol or acetaminophen/fatty foods (12) Pain of left thumb: Code(s): M79.645 - Pain in left finger(s) Category: Medical Plan: complain of pain at the left MCP joint. The patient will continue using Tylenol and Aleve for pain management. Declines xray to further evaluate this; reports that she already know that this is only going to show arthritis. (13) Colon cancer screening: Code(s): Z12.11 - Encounter for screening for malignant neoplasm of colon Category: Medical Plan: GI referral placed for colonoscopy. (14) Breast cancer screening: Code(s): Z12.39 - Encounter for other screening for malignant neoplasm of breast Category: Medical Qualifiers: Breast cancer screening modality: mammogram Qualified Code(s): Z12.31 - Encounter for screening mammogram for malignant neoplasm of breast Plan: Screening mammogram ordered Orders: Orders MM tomosynthesis screening BI Today Z12.31 - Encounter for screening mammogram for malignant neoplasm of breast Lipid Panel 3 Months E66.01 - Morbid (severe) obesity due to excess calories, E78.5 - Hyperlipidemia, unspecified, I10 - Essential (primary) hypertension UA CC w/rflx Micro + Cult 3 Months E66.01 - Morbid (severe) obesity due to excess calories, E78.5 - Hyperlipidemia, unspecified, I10 - Essential (primary) hypertension TSH reflex Free T4 3 Months E66.01 - Morbid (severe) obesity due to excess calories, E78.5 - Hyperlipidemia, unspecified, I10 - Essential (primary) hypertension Td Immunization Today Z23 - Encounter for immunization Comprehensive [place]. Panel Fast 3 Months E66.01 - Morbid (severe) obesity due to excess calories, E78.5 - Hyperlipidemia, unspecified, I10 - Essential (primary) hypertension Referrals Gastroenterology Referral Z12.11 - Encounter for screening for malignant neoplasm of colon [employer] Referral Z01.419 - Encounter for gynecological examination (general) (routine) without abnormal findings Medications: New ezetimibe 10 mg PO DAILY 30 tabs 3RF lisinopril 5 mg PO DAILY 30 tabs 3RF albuterol sulfate 90 mcg/actuation 2 puffs inhalation BID 8.5 grams 3RF fluticasone propion-salmeterol 100-50 mcg/dose 1 ea inhalation BID 60 ea 3RF
== END 2025-08-29 11:01 | disposition home or self-care (01) ==
LOC: HO.HMCH 09:45
DX: Z00.00 Encounter for general adult medical examination without abnormal findings (principal); J45.909 Unspecified asthma, uncomplicated; E66.01 Morbid (severe) obesity due to excess calories; Z68.42 Body mass index [BMI] 45.0-49.9, adult; R60.0 Localized edema; E78.5 Hyperlipidemia, unspecified; G43.909 Migraine, unspecified, not intractable, without status migrainosus; H40.9 Unspecified glaucoma; R19.7 Diarrhea, unspecified; R06.09 Other forms of dyspnea; R74.01 Elevation of levels of liver transaminase levels; M79.645 Pain in left finger(s); Z23 Encounter for immunization

== ENCOUNTER → 2025-08-29 09:44 | Outpatient (BNVA) | payer OTHER, SELFPAY | DX: Z00.00 Encounter for general adult medical examination without abnormal findings (principal); I10 Essential (primary) hypertension; H40.9 Unspecified glaucoma; E78.5 Hyperlipidemia, unspecified; H52.209 Unspecified astigmatism, unspecified eye; R19.7 Diarrhea, unspecified; J45.909 Unspecified asthma, uncomplicated; G43.909 Migraine, unspecified, not intractable, without status migrainosus; E66.01 Morbid (severe) obesity due to excess calories; H26.9 Unspecified cataract; R06.09 Other forms of dyspnea; R74.01 Elevation of levels of liver transaminase levels; M79.645 Pain in left finger(s); Z23 Encounter for immunization | CPT/HCPCS: 90471; 90714 ==